=== PATIENT | female | born 1960 | race Two or more races ===

== ENCOUNTER 2019-07-04 14:07 | Emergency (ER) | payer OTHER ==
[~2019-07-04] VITALS: Ht 162.6 cm; Wt 72.1 kg
[2019-07-04] MEDS ORDERED: LOSARTAN POTASS25 MG PO (17:22)
== END 2019-07-04 17:29 | disposition home or self-care (01) ==
LOC: ER 14:07
DX: H11.31 Conjunctival hemorrhage, right eye (principal)

== ENCOUNTER 2019-11-18 07:49 | Emergency (ER) | payer OTHER ==
[~2019-11-18] VITALS: Ht 152.4 cm; Wt 68.0 kg
[~2019-11-18 07:49] MED LIST: LOSARTAN POTASS25 MG PO
== END 2019-11-18 16:11 | disposition home or self-care (01) ==
LOC: ER 07:49
DX: K52.9 Noninfective gastroenteritis and colitis, unspecified (principal)

== ENCOUNTER 2020-07-24 08:03 | Emergency (ER) | payer OTHER ==
[~2020-07-24] VITALS: Ht 152.4 cm; Wt 69.4 kg
[2020-07-24] MEDS ORDERED: PERCOCET 5-3251 EACH PO (10:48)
[2020-07-24] MEDS ORDERED: ORPHENADRINE C100 MG PO (10:48)
[2020-07-24] MEDS ORDERED: KETO10TA2 PO (10:48)
== END 2020-07-24 11:00 | disposition home or self-care (01) ==
LOC: ER 08:03
DX: M51.36 Other intervertebral disc degeneration, lumbar region (principal); M54.5 Low back pain

== ENCOUNTER 2021-02-17 20:25 | Emergency (ER) | payer OTHER ==
[~2021-02-17] VITALS: Ht 152.4 cm; Wt 68.0 kg
[~2021-02-17 20:25] MED LIST changes: +KETO10TA2 PO; +ORPHENADRINE C100 MG PO; +PERCOCET 5-3251 EACH PO
== END 2021-02-17 22:55 | disposition home or self-care (01) ==
LOC: ER 20:25
DX: J04.0 Acute laryngitis (principal); M54.2 Cervicalgia

== ENCOUNTER 2024-04-16 09:31 | Emergency (ER) | payer OTHER ==
[~2024-04-16] VITALS: Ht 152.4 cm; Wt 78.5 kg
[2024-04-16] MEDS ORDERED: METHYLPREDNISOLONE SOD SUCC 40 MG VIAL IM STA (11:01)
[2024-04-16] MEDS ORDERED: GUAIFENESIN/DEXTROMETHORPHAN 10ML BLIST.PACK PO STA (11:02)
[2024-04-16] MEDS ORDERED: CETIRIZINE HCL 5 MG/5 ML ML PO STA (11:02)
[2024-04-16] MEDS ORDERED: CEFTRIAXONE SODIUM 1,000 MG VIAL IM STA (11:07)
[2024-04-16] MEDS ORDERED: CETIRIZINE HCL 5MG/5ML BLIST.PACK PO ONE (11:12)
[2024-04-16] MEDS ORDERED: METHYLPREDNISOLONE SOD SUCC 40 MG VIAL ONE (11:12)
[2024-04-16] MEDS ORDERED: GUAIFENESIN/DEXTROMETHORPHAN 10ML BLIST.PACK PO ONE (11:12)
[2024-04-16] MEDS ORDERED: WATER FOR INJ.,BACTERIOSTATIC 30 ML VIAL IJ ONE (11:13)
[2024-04-16] MEDS ORDERED: LIDOCAINE HCL 1% 10ML VIAL ONE (11:29)
[2024-04-16] MEDS ORDERED: CEFTRIAXONE SODIUM 1,000 MG VIAL ONE (11:30)
[2024-04-16] MEDS ORDERED: SINGULAIR10 MG PO (12:18)
[2024-04-16] MEDS ORDERED: MUCINEX DM ER1 EACH PO (12:18)
[2024-04-16] MEDS ORDERED: LEVOFLOXACIN750 MG PO (12:18)
[2024-04-16] MEDS ORDERED: ZYRTEC10 MG PO (12:18)
[2024-04-16] MEDS ORDERED: DEXAMETHASONE4 MG PO (12:18)
[2024-04-16] MEDS ORDERED: BENZONATATE200 M1 PO (12:18)
== END 2024-04-16 12:25 | disposition home or self-care (01) ==
LOC: ER 09:32
DX: J06.9 Acute upper respiratory infection, unspecified (principal)
CPT/HCPCS: 96372; 99282; J0696; J3490

== ENCOUNTER 2024-10-06 10:36 | Emergency (ER) | payer OTHER ==
[~2024-10-06] VITALS: Ht 152.4 cm; Wt 65.8 kg
[~2024-10-06 10:36] MED LIST changes: +BENZONATATE200 M1 PO; +DEXAMETHASONE4 MG PO; +LEVOFLOXACIN750 MG PO; +MUCINEX DM ER1 EACH PO; +SINGULAIR10 MG PO; +ZYRTEC10 MG PO
[2024-10-06] MEDS ORDERED: SIMVASTATIN5 MG (10:39)
[2024-10-06] MEDS ORDERED: TRIAMCINOLONE ACETONIDE 40 MG/ML VIAL IM ONE (11:00)
[2024-10-06] MEDS ORDERED: KETOROLAC TROMETHAMINE 60 MG VIAL IM ONE (11:00)
[2024-10-06 12:13] LABS: URINE APPEARANCE Turbid; URINE BILIRRUBIN Negative (NEGATIVE); URINE BLOOD Negative; URINE COLOR Yellow; URINE GLUCOSE Negative (NEGATIVE); URINE KETONE Negative (NEGATIVE); URINE LEUKOCYTE Negative; URINE NITRATE Negative; URINE PROTEIN Negative (NEGATIVE); URINE UROBILINOGEN 0.2 E.U./dl
[2024-10-06 12:17] LABS: URINE BACTERIA 134.5 uL (0.0-1933); URINE EPITHELIAL CELLS 26.9 uL (0.0-38.8); URINE RBC 18.1 uL (0.0-20.8); URINE WBC 9.8 uL (0.0-23.2)
[2024-10-06] MEDS ORDERED: DICLOFENAC SODI75 MG PO (12:35)
[2024-10-06] MEDS ORDERED: NORFLEX100MG PO (12:35)
== END 2024-10-06 12:39 | disposition home or self-care (01) ==
LOC: ER 10:38
PROVIDERS: General Practice
DX: M54.9 Dorsalgia, unspecified (principal)
CPT/HCPCS: 96372; 99282; J1885; J3301

== ENCOUNTER 2025-04-26 10:43 | Emergency (ER) | payer OTHER ==
[~2025-04-26] VITALS: Ht 149.9 cm; Wt 62.1 kg
[~2025-04-26 10:43] MED LIST changes: +DICLOFENAC SODI75 MG PO; +NORFLEX100MG PO; +SIMVASTATIN5 MG
[2025-04-26 11:12] VITALS: BP 115/76; O2SAT 99
[2025-04-26] MEDS ORDERED: ROSUVASTATIN CA10 MG PO (11:12)
[2025-04-26] MEDS ORDERED: KETOROLAC TROMETHAMINE 30 MG VIAL IM STA (12:28)
[2025-04-26] MEDS ORDERED: ORPHENADRINE CITRATE 30 MG/ML AMPUL IM STA (12:29)
== END 2025-04-26 13:23 | disposition home or self-care (01) ==
LOC: ER 10:43
DX: M43.6 Torticollis (principal)

== ENCOUNTER 2025-05-09 11:36 | Emergency (ER) | payer OTHER ==
[~2025-05-09] VITALS: Ht 157.5 cm; Wt 63.5 kg
[~2025-05-09 11:36] MED LIST changes: +ROSUVASTATIN CA10 MG PO
[2025-05-09] MEDS ORDERED: IBUPROFEN800 MG PO (12:29)
[2025-05-09] MEDS ORDERED: NORFLEX100MG PO (12:29)
[2025-05-09] MEDS ORDERED: KETOROLAC TROMETHAMINE 60 MG VIAL IM ONE ×2 (12:37→12:45)
[2025-05-09] MEDS ORDERED: DEXAMETHASONE SODIUM PHOSPHATE 4 MG/ML VIAL ONE (12:37)
[2025-05-09] MEDS ORDERED: DEXAMETHASONE SODIUM PHOSPHATE 4 MG/ML VIAL IM ONE (12:45)
[2025-05-09 13:35] VITALS: BP 150/82; O2SAT 99
== END 2025-05-09 13:37 | disposition home or self-care (01) ==
LOC: ER 11:36
DX: M75.51 Bursitis of right shoulder (principal)

== ENCOUNTER 2025-08-25 13:57 | Emergency (ER) | payer OTHER ==
[~2025-08-25] VITALS: Ht 152.4 cm; Wt 63.5 kg
[~2025-08-25 13:57] MED LIST changes: +IBUPROFEN800 MG PO
[2025-08-25] MEDS ORDERED: METHYLPREDNISOLONE SOD SUCC 125 MG VIAL IM ONE (15:30)
[2025-08-25] MEDS ORDERED: DIPHENHYDRAMINE HCL 50 MG/ML VIAL 1ML IM ONE (15:30)
[2025-08-25] MEDS ORDERED: DIPHENHYDRAMINE HCL 50 MG/ML VIAL 1ML ONE (15:38)
[2025-08-25] MEDS ORDERED: METHYLPREDNISOLONE SOD SUCC 125 MG VIAL ONE (15:38)
[2025-08-25] MEDS ORDERED: ZITHROMAX200 MG PO (15:51)
== END 2025-08-25 15:58 | disposition home or self-care (01) ==
LOC: ER 13:58
DX: L27.0 Generalized skin eruption due to drugs and medicaments taken internally (principal); T50.995A Adverse effect of other drugs, medicaments and biological substances, initial encounter; Y92.89 Other specified places as the place of occurrence of the external cause; E78.49 Other hyperlipidemia
CPT/HCPCS: 96372; 99282; J1200